=== PATIENT | female | born 1985 | race Caucasian/White ===

== ENCOUNTER 2016-08-28 07:32 | Inpatient (IN) | payer OTHER ==
[~2016-08-28] VITALS: Ht 175.3 cm; Wt 82.0 kg
[2016-08-28] MEDS ORDERED: OXYTOCIN 30U/ 0.9% NaCL 500ML 500 ML IV ONE (07:58)
[2016-08-28] MEDS ORDERED: LACTATED RINGERS 1,000 ML IV SCH (07:58)
[2016-08-28] MEDS ORDERED: FENTANYL PF 100 MCG/2ML IV PRN (08:00)
[2016-08-28] MEDS ORDERED: TERBUTALINE 1 MG/ML, 1ML IVPush PRN (08:00)
[2016-08-28] MEDS ORDERED: FENTANYL PF 100 MCG/2ML IVPush PRN (08:00)
[2016-08-28] MEDS ORDERED: ONDANSETRON 2MG/ML, 2ML IVPush PRN (08:00)
[2016-08-28] MEDS ORDERED: PLEASE ENTER HEIGHT AND WEIGHT MC SCH (08:30)
[2016-08-28] MEDS ORDERED: OXYTOCIN 30U/ 0.9% NaCL 500ML 500 ML ONE ×2 (09:13→11:17)
[2016-08-28] MEDS ORDERED: LIDOCAINE 1%, 20ML ONE (09:13)
[2016-08-28] MEDS ORDERED: MISOPROSTOL 200 MCG TABLET ONE (09:13)
[2016-08-28] MEDS ORDERED: NEWBORN KIT ONE (09:44)
[2016-08-28] MEDS ORDERED: FENTANYL PF 100 MCG/2ML ONE (10:09)
[2016-08-28] MEDS: OXYTOCIN 30U/ 0.9% NaCL 500ML 500 ML IV SCH ×11 (10:37→22:05)
[2016-08-28] MEDS ORDERED: OXYcodone/APAP 5/325MG TABLET ONE (10:48)
[2016-08-28] MEDS ORDERED: IBUPROFEN 600 MG TABLET ONE (10:48)
[2016-08-28] MEDS: IBUPROFEN 600 MG TABLET PO PRN ×2 (10:55→19:48)
[2016-08-28] MEDS ORDERED: HYDROcodone/APAP 5/325 TABLET ONE (10:57)
[2016-08-28] MEDS: HYDROcodone/APAP 5/325 TABLET PO PRN ×3 (10:59→19:48)
[2016-08-28] MEDS ORDERED: ACETAMINOPHEN 325 MG TABLET PO PRN ×2 (11:00)
[2016-08-28] MEDS ORDERED: MISOPROSTOL 200 MCG TABLET PR PRN (11:00)
[2016-08-28] MEDS ORDERED: CALCIUM CARBONATE 500 MG TAB.CHEW PO PRN (11:00)
[2016-08-28] MEDS ORDERED: BISACODYL 10 MG SUPP PR PRN (11:00)
[2016-08-28] MEDS ORDERED: ONDANSETRON 2MG/ML, 2ML IV PRN (11:00)
[2016-08-28] MEDS ORDERED: HYDROcodone/APAP 5/325 TABLET PO PRN (11:00)
[2016-08-28] MEDS ORDERED: MAGNESIUM HYDROXIDE 8%, 30ML UDC PO PRN (11:00)
[2016-08-28 12:15] VITALS: BP 107/55
[2016-08-28 15:49] VITALS: BP 98/52
[2016-08-28] MEDS: DOCUSATE 100 MG CAPSULE PO PRN (19:48)
[2016-08-28 20:00] VITALS: BP 100/63
[2016-08-29] MEDS: HYDROcodone/APAP 5/325 TABLET PO PRN ×2 (00:09→16:16)
[2016-08-29 00:10] VITALS: BP 94/62
[2016-08-29 04:20] VITALS: BP 98/63
[2016-08-29] MEDS: OXYTOCIN 30U/ 0.9% NaCL 500ML 500 ML IV SCH (06:37)
[2016-08-29 07:52] VITALS: BP 100/72
[2016-08-29] MEDS: IBUPROFEN 600 MG TABLET PO PRN ×2 (10:08→16:17)
[2016-08-29] MEDS: PRENATAL VIT/IRON/FA 1 EACH TABLET PO SCH (10:08)
[2016-08-29] MEDS: DOCUSATE 100 MG CAPSULE PO PRN ×2 (10:08→23:27)
[2016-08-29 11:16] VITALS: BP 100/72
[2016-08-29 15:43] VITALS: BP 100/70
[2016-08-29 19:55] VITALS: BP 105/61
[2016-08-30] MEDS ORDERED: HYDR-3240 PO (05:19)
[2016-08-30] MEDS ORDERED: IBUP-1222 PO (05:21)
[2016-08-30] MEDS ORDERED: DOCU-30 PO (05:22)
[2016-08-30] MEDS: IBUPROFEN 600 MG TABLET PO PRN (06:09)
[2016-08-30] MEDS: HYDROcodone/APAP 5/325 TABLET PO PRN (07:13)
[2016-08-30] MEDS: PRENATAL VIT/IRON/FA 1 EACH TABLET PO SCH (07:30)
[2016-08-30] MEDS: DOCUSATE 100 MG CAPSULE PO PRN (07:31)
[2016-08-30 07:58] VITALS: BP 106/70
== END 2016-08-30 14:51 | disposition home or self-care (01) | DRG 775 ==
LOC: LDOP 07:32 → LDIP 08:10 → 2NW 12:10
PROVIDERS: ADMIT Obstetrics & Gynecology; ATTEND Obstetrics & Gynecology
PROC: 10E0XZZ Delivery of Products of Conception, External Approach (ICD-10-PCS; principal; 2016-08-28)
PROC: 0HQ9XZZ Repair Perineum Skin, External Approach (ICD-10-PCS; 2016-08-28)
PROC: 10907ZC Drainage of Amniotic Fluid, Therapeutic from Products of Conception, Via Natural or Artificial Opening (ICD-10-PCS; 2016-08-28)
DX: O77.0 Labor and delivery complicated by meconium in amniotic fluid (principal); O69.81X0 Labor and delivery complicated by cord around neck, without compression, not applicable or unspecified; O62.3 Precipitate labor; Z37.0 Single live birth; Z3A.40 40 weeks gestation of pregnancy; Z80.3 Family history of malignant neoplasm of breast; O70.0 First degree perineal laceration during delivery
CPT/HCPCS: 36415; 85025; 86850; 86900; J2590; J7120